=== PATIENT | female | born 1950 | race Native Hawaiian/Other Pacific Islander ===

== ENCOUNTER 2016-08-31 15:11 | Outpatient (CLI) | payer OTHER ==
[2016-08-31 15:44] LABS: PLATELET COUNT 341 K/uL (152-353)
== END 2016-08-31 16:15 | disposition home or self-care (01) ==
LOC: LABW 15:11
PROVIDERS: Orthopaedic Surgery Orthopaedic Surgery of the Spine
DX: Z79.899 Other long term (current) drug therapy (principal); Z51.81 Encounter for therapeutic drug level monitoring
CPT/HCPCS: 36415; 85027; 85651; 86140

== ENCOUNTER 2016-09-07 10:57 | Outpatient (CLI) | payer OTHER ==
[2016-09-07 11:35] LABS: PLATELET COUNT 625 K/uL (152-353)
== END 2016-09-07 12:00 | disposition home or self-care (01) ==
LOC: LABW 10:57
PROVIDERS: Orthopaedic Surgery Orthopaedic Surgery of the Spine
DX: Z79.899 Other long term (current) drug therapy (principal); Z51.81 Encounter for therapeutic drug level monitoring
CPT/HCPCS: 36415; 85027; 85651; 86140

== ENCOUNTER 2017-02-05 13:09 | Outpatient (CLI) | payer OTHER | END 2017-02-05 14:10 | disposition home or self-care (01) | LOC: LABW 13:09 | DX: M81.0 Age-related osteoporosis without current pathological fracture (principal) | CPT/HCPCS: 36415; 82310 ==

== ENCOUNTER 2017-02-09 12:51 | Outpatient (CLI) | payer OTHER ==
[2017-02-09 13:23] VITALS: BP 141/72; TEMP 98.2
== END 2017-02-09 13:35 | disposition home or self-care (01) ==
LOC: INF 12:51
DX: M81.0 Age-related osteoporosis without current pathological fracture (principal)
CPT/HCPCS: 96372

== ENCOUNTER 2017-09-06 08:19 | Outpatient (CLI) | payer OTHER | END 2017-09-06 23:00 | disposition home or self-care (01) | LOC: LABW 08:19 → INF 08:19 → LABW 23:00 | DX: M81.0 Age-related osteoporosis without current pathological fracture (principal) | CPT/HCPCS: 36415; 82310 ==

== ENCOUNTER 2017-10-18 13:05 | Outpatient (CLI) | payer OTHER ==
[~2017-10-18] VITALS: Ht 162.6 cm; Wt 56.7 kg
== END 2017-10-18 20:52 | disposition home or self-care (01) ==
LOC: INF 13:05
DX: M81.0 Age-related osteoporosis without current pathological fracture (principal)
CPT/HCPCS: 82310; 96372; J0897

== ENCOUNTER 2018-10-06 12:52 | Outpatient (CLI) | payer OTHER ==
[~2018-10-06] VITALS: Ht 160 cm; Wt 60.8 kg
[2018-10-06 13:05] VITALS: BP 126/68; TEMP 98.8
== END 2018-10-06 13:59 | disposition home or self-care (01) ==
LOC: INF 12:52
DX: M81.0 Age-related osteoporosis without current pathological fracture (principal)
CPT/HCPCS: 36415; 82310; 96372; J0897

== ENCOUNTER 2019-04-17 12:55 | Outpatient (CLI) | payer OTHER ==
[~2019-04-17] VITALS: Ht 160 cm; Wt 56.7 kg
[2019-04-17 13:10] VITALS: BP 109/58; TEMP 97.7
== END 2019-04-17 14:10 | disposition home or self-care (01) ==
LOC: INF 12:55
DX: M81.0 Age-related osteoporosis without current pathological fracture (principal)
CPT/HCPCS: 36415; 82310; 96372; J0897

== ENCOUNTER 2020-02-29 10:34 | Outpatient (CLI) | payer OTHER ==
[2020-02-29 11:11] LABS: PLATELET COUNT 577 K/uL (152-353)
[2020-02-29 11:39] LABS: POTASSIUM 3.6 mmol/L (3.6-5.2)
== END 2020-02-29 21:12 | disposition home or self-care (01) ==
LOC: LAB 10:34 → RAD 10:34 → LAB 21:12
PROVIDERS: ATTEND Internal Medicine
DX: U07.1 COVID-19 (principal); Z79.899 Other long term (current) drug therapy
CPT/HCPCS: 36415; 80053; 82728; 85027; 85379; 86140

== ENCOUNTER 2020-11-22 08:55 | Outpatient (CLI) | payer OTHER ==
[~2020-11-22] VITALS: Ht 160 cm; Wt 54.4 kg
== END 2020-11-22 19:00 | disposition home or self-care (01) ==
LOC: INF 08:55
PROVIDERS: ATTEND Internal Medicine
DX: M81.0 Age-related osteoporosis without current pathological fracture (principal)
CPT/HCPCS: 36415; 82310; 96372; J0897

== ENCOUNTER 2021-07-25 08:23 | Outpatient (CLI) | payer OTHER | END 2021-07-25 19:17 | disposition home or self-care (01) | LOC: RAD 08:23 | PROVIDERS: ATTEND Physician Assistant | DX: M54.59 Other low back pain (principal) ==

== ENCOUNTER 2021-08-04 09:37 | Outpatient (CLI) | payer OTHER | END 2021-08-04 18:59 | disposition home or self-care (01) | LOC: MRI 09:37 | PROVIDERS: ATTEND Physician Assistant | DX: M54.59 Other low back pain (principal) ==

== ENCOUNTER 2021-10-15 13:43 | Outpatient (CLI) | payer OTHER ==
[~2021-10-15] VITALS: Ht 160 cm; Wt 54.4 kg
[2021-10-15 13:50] VITALS: BP 102/52; TEMP 98.4
[2021-10-15 15:21] VITALS: BP 108/56; TEMP 97.6
== END 2021-10-15 19:38 | disposition home or self-care (01) ==
LOC: INF 13:43
PROVIDERS: ATTEND Internal Medicine
DX: M81.0 Age-related osteoporosis without current pathological fracture (principal)
CPT/HCPCS: 36415; 82310; 96372; J0897

== ENCOUNTER 2022-07-27 12:42 | Outpatient (CLI) | payer OTHER ==
[~2022-07-27] VITALS: Ht 160 cm; Wt 59.0 kg
[2022-07-27 12:42] VITALS: BP 105/47; TEMP 97.2
== END 2022-07-27 19:25 | disposition home or self-care (01) ==
LOC: INF 12:42
PROVIDERS: ATTEND Internal Medicine
DX: M81.0 Age-related osteoporosis without current pathological fracture (principal)
CPT/HCPCS: 36415; 82310; 96372; J0897

== ENCOUNTER 2022-12-09 13:44 | Outpatient (CLI) | payer OTHER | END 2022-12-09 20:01 | disposition home or self-care (01) | LOC: RAD 13:44 | PROVIDERS: ATTEND Internal Medicine | DX: M51.36 Other intervertebral disc degeneration, lumbar region (principal); M16.0 Bilateral primary osteoarthritis of hip; M81.8 Other osteoporosis without current pathological fracture; N95.8 Other specified menopausal and perimenopausal disorders ==